=== PATIENT | female | born 1990 | race Caucasian/White ===

== ENCOUNTER 2016-11-28 05:28 | Day surgery (SDC) | payer OTHER ==
[2016-11-28] VITALS (8 sets, daily range): BP systolic 131–161; BP diastolic 72–100
[~2016-11-28] VITALS: Ht 160 cm; Wt 61.2 kg
[~2016-11-28 05:28] MED LIST: AVIANE1 EACH PO; LATUDA20 MG PO; TRILEPTAL150 MG PO; ZOFRAN ODT4 MG PO
[2016-11-28] MEDS ORDERED: DOXYCYCLINE HYC50 M1 PO (06:01)
[2016-11-29 12:41] LABS: INTERNAL CONTROL VALID? YES
== END 2016-11-28 19:00 | disposition home or self-care (01) ==
LOC: SDC 05:28
PROVIDERS: Anesthesiology
DX: J34.2 Deviated nasal septum (principal); J32.9 Chronic sinusitis, unspecified; Z88.0 Allergy status to penicillin
CPT/HCPCS: 84703; J0690; J1100; J1170; J2250; J2405; J2710; J3010; J3301; J7050